=== PATIENT | male | born 1960 | race Caucasian/White ===

== ENCOUNTER → 2017-11-21 12:02 | Outpatient (CLI) | payer BC, SELFPAY ==
[2017-11-21 12:57] LABS: Alanine Aminotransferase 56 IU/L (21-72); Albumin 4.7 g/dL (3.5-5.0); Albumin Globulin Ratio 1.4 (1.0-2.8); Alkaline Phosphatase 119 U/L (38-126); Aspartate Aminotransferase 60 IU/L (17-59); BUN Creatinine Ratio 18.6 (6-22); Bilirubin Total 0.7 mg/dL (0.2-1.3); Blood Urea Nitrogen 13 mg/dL (9-20); Calcium 10.2 mg/dL (8.4-10.2); Carbon Dioxide 24 mmol/L (22-32); Chloride 102 mmol/L (98-107); Cholesterol 201 mg/dL (140-199); Estimated Glomerular Filt Rate > 60.0 mL/min (>60); Globulin 3.3 g/dL (1.7-4.1); Glucose 133 mg/dL (70-100); HDL Cholesterol 56 mg/dL (40-60); HEMOLYSIS < 15 (0-50); LDL Cholesterol Calculated 97 mg/dL (<100); Potassium 4.5 mmol/L (3.4-5.1); Sodium 139 mmol/L (137-145); Triglycerides 241 mg/dL (35-150)
[2017-11-21 12:58] LABS: Hemoglobin A1C% w Est Avg Glu 8.5 % (4.0-6.0)
[2017-11-21 13:06] LABS: Add Manual Diff / Slide Review NO; Eosinophils Percent Auto 1.5 % (2-4); Hematocrit 41.4 % (41-53); Lymphocytes Percent Auto 25.7 % (25-40); Mean Corpuscular HGB Conc 33.9 % (30-36); Mean Corpuscular Hemoglobin 32.9 PG (26-34); Mean Corpuscular Volume 97.1 fL (80-100); Monocytes Percent Auto 8.6 % (3-14); Neutrophils Absolute Auto 5200 /uL (3000-5900); Neutrophils Percent Auto 63.2 % (50-75); Platelet Count 191 X10^3/uL (150-400); Red Blood Cell Count 4.27 X10^6/uL (4.5-5.9); White Blood Cell Count 8.2 X10^3/uL (4.5-11.0)
[2017-11-21 21:25] LABS: TSH w/ Reflex to FT4 0.96 uIU/mL (0.47-4.68)
== END ==
PROVIDERS: PCP Internal Medicine; Visit Provider Internal Medicine
DX: I25.10 Atherosclerotic heart disease of native coronary artery without angina pectoris (principal); I10 Essential (primary) hypertension; E11.9 Type 2 diabetes mellitus without complications; R80.9 Proteinuria, unspecified
CPT/HCPCS: 36415; 80053; 80061; 83036; 84443; 85025

== ENCOUNTER → 2019-06-16 12:26 | Outpatient (CLI) | payer BC, SELFPAY ==
[2019-06-16 13:48] LABS: Hemoglobin A1C% w Est Avg Glu 8.4 % (4.0-6.0)
[2019-06-16 14:06] LABS: BUN Creatinine Ratio 24.3 (6-22); Blood Urea Nitrogen 17 mg/dL (9-20); Calcium 10.3 mg/dL (8.4-10.2); Carbon Dioxide 26 mmol/L (22-32); Chloride 101 mmol/L (98-107); Estimated Glomerular Filt Rate > 60.0 mL/min (>60); Glucose 158 mg/dL (80-110); HEMOLYSIS 15 (0-50); Potassium 4.2 mmol/L (3.4-5.1); Sodium 141 mmol/L (137-145)
== END ==
PROVIDERS: PCP Internal Medicine; Referring Provider Internal Medicine; Visit Provider Internal Medicine
DX: R80.9 Proteinuria, unspecified (principal); I25.10 Atherosclerotic heart disease of native coronary artery without angina pectoris; I10 Essential (primary) hypertension
CPT/HCPCS: 36415; 80048; 83036

== ENCOUNTER → 2020-07-26 19:32 | Outpatient (ROUT) | payer BC, SELFPAY ==
[2020-07-26 19:51] LABS: Hemoglobin A1C% w Est Avg Glu 9.2 % (4.0-6.0)
[2020-07-26 19:53] LABS: BUN Creatinine Ratio 18.1 (6-22); Blood Urea Nitrogen 15 mg/dL (9-20); Carbon Dioxide 27 mmol/L (22-32); Chloride 104 mmol/L (98-107); Estimated Glomerular Filt Rate > 60.0 mL/min (>60); Glucose 181 mg/dL (80-110); HEMOLYSIS < 15 (0-50); Potassium 4.1 mmol/L (3.4-5.1); Sodium 140 mmol/L (137-145)
== END ==
PROVIDERS: PCP Internal Medicine; Visit Provider Internal Medicine
DX: E11.29 Type 2 diabetes mellitus with other diabetic kidney complication (principal)
CPT/HCPCS: 80048; 83036

== ENCOUNTER → 2020-08-11 11:14 | Outpatient (CLI) | payer BC, SELFPAY ==
[2020-08-11] MEDS: COVID-19 VACC #1, MRNA(MOD) 100 MCG/0.5 ML VIAL IM (11:24)
== END ==
PROVIDERS: PCP Internal Medicine; Visit Provider Internal Medicine
DX: Z23 Encounter for immunization (principal)
CPT/HCPCS: 0011A; 91301

== ENCOUNTER → 2020-09-08 11:20 | Outpatient (CLI) | payer BC, SELFPAY ==
[2020-09-08] MEDS: COVID-19 VACC #2, MRNA(MOD) 100 MCG/0.5 ML VIAL IM (11:27)
== END ==
PROVIDERS: PCP Internal Medicine; Visit Provider Internal Medicine
DX: Z23 Encounter for immunization (principal)
CPT/HCPCS: 0012A; 91301

== ENCOUNTER 2022-04-04 12:56 | Emergency (ER) | payer BC, SELFPAY ==
[2022-04-04] VITALS (38 sets, daily range): BP systolic 100–127; BP diastolic 53–70; PULSE 64–94; RESP 16–24; TEMP 36.4–37.2; O2SAT 94–100
--- NOTE | 2022-04-04 13:04 | DI.RAD.S_ITS ---
PROCEDURE: XR CHEST 1V INDICATIONS: Shortness of breath TECHNIQUE: One view of the chest was acquired. COMPARISON: None. FINDINGS: Surgical changes and devices: Sternal wires. Lungs and pleura: There is blunting of the right costophrenic angle. Mediastinum: Mediastinal contours appear normal. Heart size is enlarged. Bones and chest wall: No suspicious bony lesions. Overlying soft tissues appear unremarkable. IMPRESSION: Blunting of the right costophrenic angle suggestive of trace effusion. Dictated by: Tabby Cid M.D. on 04/04/2022 at 13:35 Approved by: Tabby Cid M.D. on 04/04/2022 at 13:35
--- NOTE | 2022-04-04 13:26 | ED.GENADULT ---
HPI - General Adult <Pete Reyes DO - Last Filed: 04/05/22 14:05> General Chief complaint: Shortness of Breath/Dyspnea Stated complaint: severe SOB, dizzyness t-7 Time Seen by Provider: 04/04/22 13:18 Source: patient Mode of arrival: Ambulatory History of Present Illness HPI narrative: Patient is a 61-year-old male. History of diabetes, coronary artery disease. Has had a heart attack and a coronary artery bypass graft approximately 13 years ago. Also has a history of hypertension and hyperlipidemia. Has had increasing worsening of shortness of breath specifically on exertion for the past year but specifically worsening over the past week. Does now got to the point where every time he gets up and moves he has some chest discomfort and also shortness of breath. Some coughing this morning but otherwise no productive cough. No noticeable swelling in his lower extremities. He saw his primary doctor approximately 2 weeks ago for the shortness of breath but he does admit that this was before things got worse a week ago. He states that he had some blood work done. Is provider was more concerned about his elevated A1c. Patient states that he came in this morning because he was not getting the results that he thought he should at his primary doctor's office and also now every time he walks even a short distance he become short of breath. Related Data Home Medications Medication Instructions Recorded Confirmed aspirin 81 mg capsule 81 mg PO DAILY 04/05/22 04/05/22 atorvastatin 80 mg tablet 80 mg PO DAILY 04/05/22 04/05/22 empagliflozin 10 mg tablet 10 mg PO DAILY 04/05/22 04/05/22 losartan 50 mg tablet 50 mg PO DAILY 04/05/22 04/05/22 metformin 1,000 mg tablet 1,000 mg PO BIDAC 04/05/22 04/05/22 metoprolol succinate 50 mg 50 mg PO DAILY 04/05/22 04/05/22 tablet,extended release 24 hr omeprazole 20 mg capsule,delayed 20 mg PO DAILY 04/05/22 04/05/22 release sildenafil 50 mg tablet 50 mg PO DAILY PRN Erectile 04/05/22 04/05/22 Dysfunction Allergies Allergy/AdvReac Type Severity Reaction Status Date / Time No Known Drug Allergies Allergy Verified 04/04/22 13:03 Review of Systems <DO Rozina Donnelly Last Filed: 04/05/22 14:05> Review of Systems ROS Unobtainable: All systems reviewed & are unremarkable except as noted in HPI and below Patient History <Pete Reyes DO - Last Filed: 04/05/22 14:05> Medical History Coronary artery disease Diabetes Hyperlipidemia Hypertension Surgical History Hx of CABG Social History lives independently: Yes Exam <Pete Reyes DO - Last Filed: 04/05/22 14:05> Initial Vital Signs Initial Vital Signs: Vital Signs Temperature 97.5 F L 04/04/22 13:01 Pulse Rate 94 H 04/04/22 13:01 Respiratory Rate 20 04/04/22 13:01 Blood Pressure 119/60 04/04/22 13:01 Pulse Oximetry 100 04/04/22 13:01 Oxygen Delivery Method 04/04/22 13:01 Const General: cooperative and comfortable HENMT Head: normal to inspection and normocephalic Eyes General: Yes appearance normal, both eyes and all related structures Neck Neck: normal visual inspection Chest Other: Surgical scar send her chest consistent with CABG history Resp Effort & Inspection: normal respiratory effort Auscultation: clear to auscultation bilaterally Cardio Rate: regular rate Rhythm: regular rhythm Heart Sounds: murmur GI Inspection: normal to inspection and non-distended Palpation: soft Skin Other: Surgical scar consistent with CABG history Neuro General: patient alert, patient awake, patient oriented x3 and moves all extremities Speech: speech normal Extrem General: edema Psych Appearance: grossly normal <Matti South DO - Last Filed: 04/06/22 01:50> Initial Vital Signs Initial Vital Signs: Vital Signs Temperature 97.5 F L 04/04/22 13:01 Pulse Rate 94 H 04/04/22 13:01 Respiratory Rate 20 04/04/22 13:01 Blood Pressure 119/60 04/04/22 13:01 Pulse Oximetry 100 04/04/22 13:01 Oxygen Delivery Method 04/04/22 13:01 Course <Pete Reyes DO - Last Filed: 04/05/22 14:05> Orders Ordered: Discontinued Medications Atorvastatin Calcium (Atorvastatin 20 Mg Tablet) 50 mg PO BEDTIME DELIA Sodium Chloride (Normal Saline 0.9%) 250 mls @ 21 mls/hr IV CONT [facility] Last Infusion: 04/05/22 13:24 Dose: 0 mls/hr Documented By: Admin: 04/04/22 22:15 Dose: 21 mls/hr Documented By: GILMA Sodium Chloride (Normal Saline 0.9%) 500 mls @ 21 mls/hr IV CONT [facility] Last Infusion: 04/05/22 15:00 Dose: 21 mls/hr Documented By: Admin: 04/05/22 13:27 Dose: 21 mls/hr Documented By: UMA Losartan Potassium (Losartan 50 Mg Tablet) 50 mg PO DAILY [facility] Last Admin: 04/05/22 14:45 Dose: 50 mg Documented By: UMA Metformin HCl (Metformin Hcl 500 Mg Tablet) 1,000 mg PO 0800,1700 [facility] Last Admin: 04/05/22 14:44 Dose: 1,000 mg Documented By: UMA Metoprolol Succinate (Metoprolol Er 50 Mg Tablet) 50 mg PO DAILY [facility] Last Admin: 04/05/22 14:44 Dose: 50 mg Documented By: UMA Pantoprazole Sodium (Pantoprazole 40 Mg Vial) 80 mg IV NOW ONE Stop: 04/04/22 15:31 Last Admin: 04/04/22 15:54 Dose: 80 mg Documented By: GILMA Pantoprazole Sodium (Pantoprazole 40 Mg Vial) 40 mg IV DAILY [facility] Last Admin: 04/05/22 09:19 Dose: 40 mg Documented By: JACQUES Vital Signs Vital signs: Vital Signs - 8 hr 04/05/22 06:30 04/05/22 06:30 04/05/22 07:00 Pulse Rate 62 Respiratory Rate 16 Blood Pressure 124/73 120/70 Pulse Oximetry 95 Oxygen Delivery Method 04/05/22 07:00 04/05/22 07:30 04/05/22 07:30 Pulse Rate 77 63 Respiratory Rate 17 17 Blood Pressure 134/79 Pulse Oximetry 96 97 Oxygen Delivery Method 04/05/22 08:00 04/05/22 08:00 04/05/22 08:30 Pulse Rate 65 Respiratory Rate 19 Blood Pressure 144/75 H 128/74 Pulse Oximetry 96 Oxygen Delivery Method 04/05/22 08:30 04/05/22 09:00 04/05/22 09:00 Pulse Rate 65 61 Respiratory Rate 21 17 Blood Pressure 129/73 Pulse Oximetry 98 97 Oxygen Delivery Method 04/05/22 09:30 04/05/22 09:30 04/05/22 10:00 Pulse Rate 70 Respiratory Rate 20 Blood Pressure 140/79 114/62 Pulse Oximetry 97 Oxygen Delivery Method 04/05/22 10:00 04/05/22 10:30 04/05/22 10:30 Pulse Rate 75 69 Respiratory Rate 19 19 Blood Pressure 130/71 Pulse Oximetry 97 96 Oxygen Delivery Method 04/05/22 11:00 04/05/22 11:00 04/05/22 11:30 Pulse Rate 67 Respiratory Rate 19 Blood Pressure 118/69 130/69 Pulse Oximetry 97 Oxygen Delivery Method Room Air 04/05/22 11:30 04/05/22 12:00 04/05/22 12:00 Pulse Rate 65 62 Respiratory Rate 20 18 Blood Pressure 119/59 L Pulse Oximetry 95 94 Oxygen Delivery Method 04/05/22 12:30 04/05/22 12:30 Pulse Rate 67 Respiratory Rate 19 Blood Pressure 132/66 Pulse Oximetry 97 Oxygen Delivery Method <Matti South, DO - Last Filed: 04/06/22 01:50> Orders Ordered: Discontinued Medications Atorvastatin Calcium (Atorvastatin 20 Mg Tablet) 50 mg PO BEDTIME DELIA Sodium Chloride (Normal Saline 0.9%) 250 mls @ 21 mls/hr IV CONT [facility] Last Infusion: 04/05/22 13:24 Dose: 0 mls/hr Documented By: Admin: 04/04/22 22:15 Dose: 21 mls/hr Documented By: GILMA Sodium Chloride (Normal Saline 0.9%) 500 mls @ 21 mls/hr IV CONT [facility] Last Infusion: 04/05/22 15:00 Dose: 21 mls/hr Documented By: Admin: 04/05/22 13:27 Dose: 21 mls/hr Documented By: UMA Losartan Potassium (Losartan 50 Mg Tablet) 50 mg PO DAILY [facility] Last Admin: 04/05/22 14:45 Dose: 50 mg Documented By: UMA Metformin HCl (Metformin Hcl 500 Mg Tablet) 1,000 mg PO 0800,1700 [facility] Last Admin: 04/05/22 14:44 Dose: 1,000 mg Documented By: UMA Metoprolol Succinate (Metoprolol Er 50 Mg Tablet) 50 mg PO DAILY [facility] Last Admin: 04/05/22 14:44 Dose: 50 mg Documented By: UMA Pantoprazole Sodium (Pantoprazole 40 Mg Vial) 80 mg IV NOW ONE Stop: 04/04/22 15:31 Last Admin: 04/04/22 15:54 Dose: 80 mg Documented By: GILMA Pantoprazole Sodium (Pantoprazole 40 Mg Vial) 40 mg IV DAILY [facility] Last Admin: 04/05/22 09:19 Dose: 40 mg Documented By: JACQUES Vital Signs Vital signs: Vital Signs - 8 hr 04/05/22 06:30 04/05/22 06:30 04/05/22 07:00 Pulse Rate 62 Respiratory Rate 16 Blood Pressure 124/73 120/70 Pulse Oximetry 95 Oxygen Delivery Method 04/05/22 07:00 04/05/22 07:30 04/05/22 07:30 Pulse Rate 77 63 Respiratory Rate 17 17 Blood Pressure 134/79 Pulse Oximetry 96 97 Oxygen Delivery Method 04/05/22 08:00 04/05/22 08:00 04/05/22 08:30 Pulse Rate 65 Respiratory Rate 19 Blood Pressure 144/75 H 128/74 Pulse Oximetry 96 Oxygen Delivery Method 04/05/22 08:30 04/05/22 09:00 04/05/22 09:00 Pulse Rate 65 61 Respiratory Rate 21 17 Blood Pressure 129/73 Pulse Oximetry 98 97 Oxygen Delivery Method 04/05/22 09:30 04/05/22 09:30 04/05/22 10:00 Pulse Rate 70 Respiratory Rate 20 Blood Pressure 140/79 114/62 Pulse Oximetry 97 Oxygen Delivery Method 04/05/22 10:00 04/05/22 10:30 04/05/22 10:30 Pulse Rate 75 69 Respiratory Rate 19 19 Blood Pressure 130/71 Pulse Oximetry 97 96 Oxygen Delivery Method 04/05/22 11:00 04/05/22 11:00 04/05/22 11:30 Pulse Rate 67 Respiratory Rate 19 Blood Pressure 118/69 130/69 Pulse Oximetry 97 Oxygen Delivery Method Room Air 04/05/22 11:30 04/05/22 12:00 04/05/22 12:00 Pulse Rate 65 62 Respiratory Rate 20 18 Blood Pressure 119/59 L Pulse Oximetry 95 94 Oxygen Delivery Method 04/05/22 12:30 04/05/22 12:30 Pulse Rate 67 Respiratory Rate 19 Blood Pressure 132/66 Pulse Oximetry 97 Oxygen Delivery Method Medical Decision Making <Pete Reyes, DO - Last Filed: 04/05/22 14:05> Lab Data Lab results reviewed: Yes I reviewed the patient's lab results. Result diagrams: 04/05/22 08:34 04/05/22 08:34 Labs: Lab Results 04/04/22 04/04/22 04/04/22 Range/Units 13:34 14:16 14:16 WBC 7.8 (4.5-11.0) X10^3/uL RBC 2.70 L (4.5-5.9) X10^6/uL Hgb 5.2 L* (13.5-17.5) g/dL Hct 17.4 L* (41-53) % MCV 64.5 L (80-100) fL MCH 19.3 L (26-34) PG MCHC 29.8 L (30-36) % RDW 19.9 H (11.6-14.8) % Plt Count 217 (150-400) X10^3/uL Neut % (Auto) 78.6 H (50-75) % Lymph % (Auto) 12.4 L (25-40) % Newberry % (Auto) 7.3 (3-14) % Eos % (Auto) 0.7 L (2-4) % Baso % (Auto) 1.0 (0-2) % Neut # (Auto) 6100 (3378-7801) /uL Lymph # (Auto) 1000 L (0570-1272) /uL Newberry # (Auto) 600 (0-900) /uL Eos # (Auto) 100 (0-450) /uL Baso # (Auto) 100 (0-100) /uL RBC Morphology See below Hypochromasia 2+ H Poikilocytosis Anisocytosis Microcytosis 2+ H Ovalocytes Schistocytes PT 13.9 H (10.1-12.7) SECONDS INR 1.2 (0.9-1.3) Sodium (137-145) mmol/L Potassium (3.4-5.1) mmol/L Chloride (98-107) mmol/L Carbon Dioxide (22-32) mmol/L BUN (9-20) mg/dL Creatinine (0.66-1.25) mg/dL Estimated GFR (>60) mL/min BUN/Creatinine Ratio (6-22) Glucose (80-110) mg/dL Lactate (0.7-2.1) mmol/L Calcium (8.4-10.2) mg/dL Total Bilirubin (0.2-1.3) mg/dL AST (17-59) IU/L ALT (<50) IU/L Alkaline Phosphatase (38-126) U/L Total Creatine Kinase (55-170) U/L CK-MB (CK-2) CK-MB (CK-2) Rel Index Troponin I (0.01-0.034) ng/mL NT-Pro-B Natriuret Pep (<125) pg/mL Total Protein (6.3-8.2) g/dL Albumin (3.5-5.0) g/dL Globulin (1.7-4.1) g/dL Albumin/Globulin Ratio (1.0-2.8) SARS-CoV-2 (PCR) Negative (Negative) Blood Type Antibody Screen Crossmatch 04/04/22 04/04/22 04/04/22 Range/Units 14:16 14:16 15:20 WBC (4.5-11.0) X10^3/uL RBC (4.5-5.9) X10^6/uL Hgb (13.5-17.5) g/dL Hct (41-53) % MCV (80-100) fL MCH (26-34) PG MCHC (30-36) % RDW (11.6-14.8) % Plt Count (150-400) X10^3/uL Neut % (Auto) (50-75) % Lymph % (Auto) (25-40) % Newberry % (Auto) (3-14) % Eos % (Auto) (2-4) % Baso % (Auto) (0-2) % Neut # (Auto) (8735-3218) /uL Lymph # (Auto) (9322-2037) /uL Newberry # (Auto) (0-900) /uL Eos # (Auto) (0-450) /uL Baso # (Auto) (0-100) /uL RBC Morphology Hypochromasia Poikilocytosis Anisocytosis Microcytosis Ovalocytes Schistocytes PT (10.1-12.7) SECONDS INR (0.9-1.3) Sodium 140 (137-145) mmol/L Potassium 4.4 (3.4-5.1) mmol/L Chloride 106 (98-107) mmol/L Carbon Dioxide 20 L (22-32) mmol/L BUN 25 H (9-20) mg/dL Creatinine 1.09 (0.66-1.25) mg/dL Estimated GFR > 60 (>60) mL/min BUN/Creatinine Ratio 22.9 H (6-22) Glucose 168 H (80-110) mg/dL Lactate 2.7 H (0.7-2.1) mmol/L Calcium 9.6 (8.4-10.2) mg/dL Total Bilirubin 0.7 (0.2-1.3) mg/dL AST 27 (17-59) IU/L ALT 25 (<50) IU/L Alkaline Phosphatase 67 (38-126) U/L Total Creatine Kinase (55-170) U/L CK-MB (CK-2) CK-MB (CK-2) Rel Index Troponin I 0.144 H* (0.01-0.034) ng/mL NT-Pro-B Natriuret Pep 2130 H (<125) pg/mL Total Protein 7.8 (6.3-8.2) g/dL Albumin 4.4 (3.5-5.0) g/dL Globulin 3.4 (1.7-4.1) g/dL Albumin/Globulin Ratio 1.3 (1.0-2.8) SARS-CoV-2 (PCR) (Negative) Blood Type O Negative Antibody Screen Negative Crossmatch See Detail 04/04/22 04/04/22 04/04/22 Range/Units 16:45 19:13 23:11 WBC (4.5-11.0) X10^3/uL RBC (4.5-5.9) X10^6/uL Hgb 6.0 L* (13.5-17.5) g/dL Hct 19.1 L* (41-53) % MCV (80-100) fL MCH (26-34) PG MCHC (30-36) % RDW (11.6-14.8) % Plt Count (150-400) X10^3/uL Neut % (Auto) (50-75) % Lymph % (Auto) (25-40) % Newberry % (Auto) (3-14) % Eos % (Auto) (2-4) % Baso % (Auto) (0-2) % Neut # (Auto) (4499-5571) /uL Lymph # (Auto) (6935-8038) /uL Newberry # (Auto) (0-900) /uL Eos # (Auto) (0-450) /uL Baso # (Auto) (0-100) /uL RBC Morphology Hypochromasia Poikilocytosis Anisocytosis Microcytosis Ovalocytes Schistocytes PT (10.1-12.7) SECONDS INR (0.9-1.3) Sodium (137-145) mmol/L Potassium (3.4-5.1) mmol/L Chloride (98-107) mmol/L Carbon Dioxide (22-32) mmol/L BUN (9-20) mg/dL Creatinine (0.66-1.25) mg/dL Estimated GFR (>60) mL/min BUN/Creatinine Ratio (6-22) Glucose (80-110) mg/dL Lactate 2.1 (0.7-2.1) mmol/L Calcium (8.4-10.2) mg/dL Total Bilirubin (0.2-1.3) mg/dL AST (17-59) IU/L ALT (<50) IU/L Alkaline Phosphatase (38-126) U/L Total Creatine Kinase 31 L (55-170) U/L CK-MB (CK-2) TNP CK-MB (CK-2) Rel Index TNP Troponin I 0.156 H* (0.01-0.034) ng/mL NT-Pro-B Natriuret Pep (<125) pg/mL Total Protein (6.3-8.2) g/dL Albumin (3.5-5.0) g/dL Globulin (1.7-4.1) g/dL Albumin/Globulin Ratio (1.0-2.8) SARS-CoV-2 (PCR) (Negative) Blood Type Antibody Screen Crossmatch 04/05/22 04/05/22 Range/Units 08:34 08:34 WBC 7.0 (4.5-11.0) X10^3/uL RBC 3.52 L (4.5-5.9) X10^6/uL Hgb 8.1 L (13.5-17.5) g/dL Hct 25.2 L (41-53) % MCV 71.5 L D (80-100) fL MCH 23.0 L (26-34) PG MCHC 32.2 (30-36) % RDW 25.5 H (11.6-14.8) % Plt Count 178 (150-400) X10^3/uL Neut % (Auto) 74.7 (50-75) % Lymph % (Auto) 13.1 L (25-40) % Newberry % (Auto) 9.7 (3-14) % Eos % (Auto) 1.3 L (2-4) % Baso % (Auto) 1.2 (0-2) % Neut # (Auto) 5200 (6428-7917) /uL Lymph # (Auto) 900 L (8077-2784) /uL Newberry # (Auto) 700 (0-900) /uL Eos # (Auto) 100 (0-450) /uL Baso # (Auto) 100 (0-100) /uL RBC Morphology See below Hypochromasia 2+ H Poikilocytosis 2+ H Anisocytosis 2+ H Microcytosis 1+ H Ovalocytes 1+ H Schistocytes 1+ H PT (10.1-12.7) SECONDS INR (0.9-1.3) Sodium 140 (137-145) mmol/L Potassium 4.2 (3.4-5.1) mmol/L Chloride 108 H (98-107) mmol/L Carbon Dioxide 25 (22-32) mmol/L BUN 22 H (9-20) mg/dL Creatinine 1.21 (0.66-1.25) mg/dL Estimated GFR > 60 (>60) mL/min BUN/Creatinine Ratio 18.2 (6-22) Glucose 114 H (80-110) mg/dL Lactate (0.7-2.1) mmol/L Calcium 9.3 (8.4-10.2) mg/dL Total Bilirubin 1.4 H (0.2-1.3) mg/dL AST 24 (17-59) IU/L ALT 23 (<50) IU/L Alkaline Phosphatase 63 (38-126) U/L Total Creatine Kinase 26 L (55-170) U/L CK-MB (CK-2) TNP CK-MB (CK-2) Rel Index TNP Troponin I 0.142 H* (0.01-0.034) ng/mL NT-Pro-B Natriuret Pep (<125) pg/mL Total Protein 7.1 (6.3-8.2) g/dL Albumin 3.9 (3.5-5.0) g/dL Globulin 3.2 (1.7-4.1) g/dL Albumin/Globulin Ratio 1.2 (1.0-2.8) SARS-CoV-2 (PCR) (Negative) Blood Type Antibody Screen Crossmatch Point of Care Testing Stool Occult Blood Positive Glucose POC 255 Point of care testing: Point of Care Testing Stool Occult Blood Positive Glucose POC 255 Imaging Data Chest x-ray: Radiologist's Impression: [address] [address] XRay Report Signed Patient: Octavio Bhatti MR#: [id number] : 1960 Acct:[id number] Age/Sex: 61 / M Date of Service: 04/04/22 Loc: ED Accession Number: [id number] ?? Procedure: XR chest 1V Ordering Provider: Pete Reyes D.O. PROCEDURE:? XR CHEST 1V ? INDICATIONS:? Shortness of breath ? TECHNIQUE:? One view of the chest was acquired.? ? COMPARISON:? None. ? FINDINGS:? ? Surgical changes and devices:? Sternal wires. ? Lungs and pleura:? There is blunting of the right costophrenic angle. ? Mediastinum:? Mediastinal contours appear normal.? Heart size is enlarged. ? Bones and chest wall:? No suspicious bony lesions.? Overlying soft tissues appear unremarkable.? ? IMPRESSION:? Blunting of the right costophrenic angle suggestive of trace effusion.? ? ? Dictated by: Tabby Cid M.D. on 04/04/2022 at 13:35 ? ? Approved by: Tabby Cid M.D. on 04/04/2022 at 13:35? ECG Data Attestation: I personally reviewed and interpreted this ECG as follows: Prior ECG tracings: not available for review Interpretation: Sinus rhythm Ventricular rate of [address] depressions 1 2 aVL V2 V3 V4 No [address] elevations MDM Narrative Medical decision making narrative: Patient is anemic. Has heme-positive stool. Also has an elevated troponin. Has ST depressions. Is only symptomatic upon exertion. Discussed risks and benefits of a blood transfusion. Patient expressed understanding and is agreeable to a blood transfusion. Will transfuse 2 units of packed red blood cells. Discussed the case with Dr. Malik with cardiology who recommended transfusion. He also recommend transfer to facility with Cardiology. Patient is also started on Protonix. Care turned over to Dr. South for continued observation overnight. [1800] (Brannon) Patient received in sign out from [Amy]. I have reviewed the clinical course and performed an independent history and physical exam. Patient on multiple wait lists, blood hanging, patient feeling relatively well 0211 - [facility] called to check in on him, placed on list. 04/05 Dr reyes: Reassume care patient this morning. Reviewed the events last night. He has received a total of 3 units of packed red blood cells. His hemoglobin hematocrit have improved. He remains asymptomatic with no chest pain. He actually states he feels better and less week even with just sitting up in bed and standing at bedside using the urinal. He is tolerating oral intake. He has no abdominal pain. His troponin has improved somewhat but is still elevated. We will continue to hold on any anticoagulation. Repeat EKG today is relatively unchanged from yesterday. Maybe a slight improvement in the ST depressions. We did discuss the case with Dr. Abernathy [facility] at [facility] who accepts the patient in transfer. We received bed assignment. Patient understands the need for transfer. He is in agreement. He is stable for transport. <Matti South, DO - Last Filed: 04/06/22 01:50> Lab Data Labs: Lab Results 04/04/22 04/04/22 04/04/22 Range/Units 13:34 14:16 14:16 WBC 7.8 (4.5-11.0) X10^3/uL RBC 2.70 L (4.5-5.9) X10^6/uL Hgb 5.2 L* (13.5-17.5) g/dL Hct 17.4 L* (41-53) % MCV 64.5 L (80-100) fL MCH 19.3 L (26-34) PG MCHC 29.8 L (30-36) % RDW 19.9 H (11.6-14.8) % Plt Count 217 (150-400) X10^3/uL Neut % (Auto) 78.6 H (50-75) % Lymph % (Auto) 12.4 L (25-40) % Newberry % (Auto) 7.3 (3-14) % Eos % (Auto) 0.7 L (2-4) % Baso % (Auto) 1.0 (0-2) % Neut # (Auto) 6100 (1900-0517) /uL Lymph # (Auto) 1000 L (9920-4435) /uL Newberry # (Auto) 600 (0-900) /uL Eos # (Auto) 100 (0-450) /uL Baso # (Auto) 100 (0-100) /uL RBC Morphology See below Hypochromasia 2+ H Poikilocytosis Anisocytosis Microcytosis 2+ H Ovalocytes Schistocytes PT 13.9 H (10.1-12.7) SECONDS INR 1.2 (0.9-1.3) Sodium (137-145) mmol/L Potassium (3.4-5.1) mmol/L Chloride (98-107) mmol/L Carbon Dioxide (22-32) mmol/L BUN (9-20) mg/dL Creatinine (0.66-1.25) mg/dL Estimated GFR (>60) mL/min BUN/Creatinine Ratio (6-22) Glucose (80-110) mg/dL Lactate (0.7-2.1) mmol/L Calcium (8.4-10.2) mg/dL Total Bilirubin (0.2-1.3) mg/dL AST (17-59) IU/L ALT (<50) IU/L Alkaline Phosphatase (38-126) U/L Total Creatine Kinase (55-170) U/L CK-MB (CK-2) CK-MB (CK-2) Rel Index Troponin I (0.01-0.034) ng/mL NT-Pro-B Natriuret Pep (<125) pg/mL Total Protein (6.3-8.2) g/dL Albumin (3.5-5.0) g/dL Globulin (1.7-4.1) g/dL Albumin/Globulin Ratio (1.0-2.8) SARS-CoV-2 (PCR) Negative (Negative) Blood Type Antibody Screen Crossmatch 04/04/22 04/04/22 04/04/22 Range/Units 14:16 14:16 15:20 WBC (4.5-11.0) X10^3/uL RBC (4.5-5.9) X10^6/uL Hgb (13.5-17.5) g/dL Hct (41-53) % MCV (80-100) fL MCH (26-34) PG MCHC (30-36) % RDW (11.6-14.8) % Plt Count (150-400) X10^3/uL Neut % (Auto) (50-75) % Lymph % (Auto) (25-40) % Newberry % (Auto) (3-14) % Eos % (Auto) (2-4) % Baso % (Auto) (0-2) % Neut # (Auto) (9607-0176) /uL Lymph # (Auto) (0022-4032) /uL Newberry # (Auto) (0-900) /uL Eos # (Auto) (0-450) /uL Baso # (Auto) (0-100) /uL RBC Morphology Hypochromasia Poikilocytosis Anisocytosis Microcytosis Ovalocytes Schistocytes PT (10.1-12.7) SECONDS INR (0.9-1.3) Sodium 140 (137-145) mmol/L Potassium 4.4 (3.4-5.1) mmol/L Chloride 106 (98-107) mmol/L Carbon Dioxide 20 L (22-32) mmol/L BUN 25 H (9-20) mg/dL Creatinine 1.09 (0.66-1.25) mg/dL Estimated GFR > 60 (>60) mL/min BUN/Creatinine Ratio 22.9 H (6-22) Glucose 168 H (80-110) mg/dL Lactate 2.7 H (0.7-2.1) mmol/L Calcium 9.6 (8.4-10.2) mg/dL Total Bilirubin 0.7 (0.2-1.3) mg/dL AST 27 (17-59) IU/L ALT 25 (<50) IU/L Alkaline Phosphatase 67 (38-126) U/L Total Creatine Kinase (55-170) U/L CK-MB (CK-2) CK-MB (CK-2) Rel Index Troponin I 0.144 H* (0.01-0.034) ng/mL NT-Pro-B Natriuret Pep 2130 H (<125) pg/mL Total Protein 7.8 (6.3-8.2) g/dL Albumin 4.4 (3.5-5.0) g/dL Globulin 3.4 (1.7-4.1) g/dL Albumin/Globulin Ratio 1.3 (1.0-2.8) SARS-CoV-2 (PCR) (Negative) Blood Type O Negative Antibody Screen Negative Crossmatch See Detail 04/04/22 04/04/22 04/04/22 Range/Units 16:45 19:13 23:11 WBC (4.5-11.0) X10^3/uL RBC (4.5-5.9) X10^6/uL Hgb 6.0 L* (13.5-17.5) g/dL Hct 19.1 L* (41-53) % MCV (80-100) fL MCH (26-34) PG MCHC (30-36) % RDW (11.6-14.8) % Plt Count (150-400) X10^3/uL Neut % (Auto) (50-75) % Lymph % (Auto) (25-40) % Newberry % (Auto) (3-14) % Eos % (Auto) (2-4) % Baso % (Auto) (0-2) % Neut # (Auto) (1663-5080) /uL Lymph # (Auto) (8310-3211) /uL Newberry # (Auto) (0-900) /uL Eos # (Auto) (0-450) /uL Baso # (Auto) (0-100) /uL RBC Morphology Hypochromasia Poikilocytosis Anisocytosis Microcytosis Ovalocytes Schistocytes PT (10.1-12.7) SECONDS INR (0.9-1.3) Sodium (137-145) mmol/L Potassium (3.4-5.1) mmol/L Chloride (98-107) mmol/L Carbon Dioxide (22-32) mmol/L BUN (9-20) mg/dL Creatinine (0.66-1.25) mg/dL Estimated GFR (>60) mL/min BUN/Creatinine Ratio (6-22) Glucose (80-110) mg/dL Lactate 2.1 (0.7-2.1) mmol/L Calcium (8.4-10.2) mg/dL Total Bilirubin (0.2-1.3) mg/dL AST (17-59) IU/L ALT (<50) IU/L Alkaline Phosphatase (38-126) U/L Total Creatine Kinase 31 L (55-170) U/L CK-MB (CK-2) TNP CK-MB (CK-2) Rel Index TNP Troponin I 0.156 H* (0.01-0.034) ng/mL NT-Pro-B Natriuret Pep (<125) pg/mL Total Protein (6.3-8.2) g/dL Albumin (3.5-5.0) g/dL Globulin (1.7-4.1) g/dL Albumin/Globulin Ratio (1.0-2.8) SARS-CoV-2 (PCR) (Negative) Blood Type Antibody Screen Crossmatch 04/05/22 04/05/22 Range/Units 08:34 08:34 WBC 7.0 (4.5-11.0) X10^3/uL RBC 3.52 L (4.5-5.9) X10^6/uL Hgb 8.1 L (13.5-17.5) g/dL Hct 25.2 L (41-53) % MCV 71.5 L D (80-100) fL MCH 23.0 L (26-34) PG MCHC 32.2 (30-36) % RDW 25.5 H (11.6-14.8) % Plt Count 178 (150-400) X10^3/uL Neut % (Auto) 74.7 (50-75) % Lymph % (Auto) 13.1 L (25-40) % Newberry % (Auto) 9.7 (3-14) % Eos % (Auto) 1.3 L (2-4) % Baso % (Auto) 1.2 (0-2) % Neut # (Auto) 5200 (8121-9919) /uL Lymph # (Auto) 900 L (3618-3291) /uL Newberry # (Auto) 700 (0-900) /uL Eos # (Auto) 100 (0-450) /uL Baso # (Auto) 100 (0-100) /uL RBC Morphology See below Hypochromasia 2+ H Poikilocytosis 2+ H Anisocytosis 2+ H Microcytosis 1+ H Ovalocytes 1+ H Schistocytes 1+ H PT (10.1-12.7) SECONDS INR (0.9-1.3) Sodium 140 (137-145) mmol/L Potassium 4.2 (3.4-5.1) mmol/L Chloride 108 H (98-107) mmol/L Carbon Dioxide 25 (22-32) mmol/L BUN 22 H (9-20) mg/dL Creatinine 1.21 (0.66-1.25) mg/dL Estimated GFR > 60 (>60) mL/min BUN/Creatinine Ratio 18.2 (6-22) Glucose 114 H (80-110) mg/dL Lactate (0.7-2.1) mmol/L Calcium 9.3 (8.4-10.2) mg/dL Total Bilirubin 1.4 H (0.2-1.3) mg/dL AST 24 (17-59) IU/L ALT 23 (<50) IU/L Alkaline Phosphatase 63 (38-126) U/L Total Creatine Kinase 26 L (55-170) U/L CK-MB (CK-2) TNP CK-MB (CK-2) Rel Index TNP Troponin I 0.142 H* (0.01-0.034) ng/mL NT-Pro-B Natriuret Pep (<125) pg/mL Total Protein 7.1 (6.3-8.2) g/dL Albumin 3.9 (3.5-5.0) g/dL Globulin 3.2 (1.7-4.1) g/dL Albumin/Globulin Ratio 1.2 (1.0-2.8) SARS-CoV-2 (PCR) (Negative) Blood Type Antibody Screen Crossmatch Point of Care Testing Stool Occult Blood Positive Glucose POC 255 Point of care testing: Point of Care Testing Stool Occult Blood Positive Glucose POC 255 MDM Narrative Medical decision making narrative: Patient is anemic. Has heme-positive stool. Also has an elevated troponin. Has ST depressions. Is only symptomatic upon exertion. Discussed risks and benefits of a blood transfusion. Patient expressed understanding and is agreeable to a blood transfusion. Will transfuse 2 units of packed red blood cells. Discussed the case with Dr. Malik with cardiology who recommended transfusion. He also recommend transfer to facility with Cardiology. Patient is also started on Protonix. Care turned over to Dr. South for continued observation overnight. [1800] (Brannon) Patient received in sign out from Dr. Aldana]. I have reviewed the clinical course and performed an independent history and physical exam. Patient on multiple wait lists, blood hanging, patient feeling relatively well 0211 - [facility] called to check in on him, placed on list. Critical Care Time <Pete Reyes, DO - Last Filed: 04/05/22 14:05> Critical Care Time Critical Care Time: Yes Total Critical Care Time: 50 Attestation: The high probability of a clinically significant, sudden or life threatening deterioration of the []cardiovascular, hematologic, GI system(s) required my full and direct attention, intervention and personal management. The aggregate critical care time was 50 minutes. This time is in addition to time spent performing reported procedures but includes the following: [x] Data Review and interpretation [x] Patient assessment and monitoring of vital signs [x] Documentation [x] Medication orders and management Discharge Plan Departure Patient Disposition: [facility] Clinical Impression: Anemia, Dyspnea on exertion, Elevated troponin, GI bleed Prescriptions: No Action losartan 50 mg tablet 50 mg PO DAILY Label Comments: TAKE ONE TABLET BY MOUTH ONE TIME DAILY atorvastatin 80 mg tablet 80 mg PO DAILY Label Comments: TAKE ONE TABLET BY MOUTH ONE TIME DAILY sildenafil 50 mg tablet 50 mg PO DAILY PRN (Reason: Erectile Dysfunction) Label Comments: TAKE ONE TABLET BY MOUTH ONE TIME DAILY Rx Instructions: med list states daily, pt states he takes prn for sexual activity metoprolol succinate 50 mg tablet extended release 24 hr 50 mg PO DAILY Label Comments: TAKE ONE TABLET BY MOUTH ONE TIME DAILY metformin 1,000 mg tablet 1,000 mg PO BIDAC Rx Instructions: twice daily w/ meals omeprazole 20 mg Capsule,Delayed Release(Dr/Ec) 20 mg PO DAILY empagliflozin 10 mg Tablet 10 mg PO DAILY aspirin 81 mg Capsule 81 mg PO DAILY Referrals: Nir Mora MD [Primary Care Provider] -
[2022-04-04 14:04] LABS: COVID19 -Nasal RAPID Negative (Negative)
[2022-04-04 14:33] LABS: INR 1.2 (0.9-1.3); Prothrombin Time 13.9 SECONDS (10.1-12.7)
[2022-04-04 14:43] LABS: Add Manual Diff / Slide Review NO; Alanine Aminotransferase 25 IU/L (<50); Albumin 4.4 g/dL (3.5-5.0); Albumin Globulin Ratio 1.3 (1.0-2.8); Alkaline Phosphatase 67 U/L (38-126); Aspartate Aminotransferase 27 IU/L (17-59); BUN Creatinine Ratio 22.9 (6-22); Basophils Absolute Auto 100 /uL (0-100); Bilirubin Total 0.7 mg/dL (0.2-1.3); Blood Urea Nitrogen 25 mg/dL (9-20); Calcium 9.6 mg/dL (8.4-10.2); Carbon Dioxide 20 mmol/L (22-32); Chloride 106 mmol/L (98-107); Eosinophils Absolute Auto 100 /uL (0-450); Eosinophils Percent Auto 0.7 % (2-4); Estimated Glomerular Filt Rate > 60 mL/min (>60); Globulin 3.4 g/dL (1.7-4.1); Glucose 168 mg/dL (80-110); HEMOLYSIS < 15 (0-50); Lymphocytes Absolute Auto 1000 /uL (1100-4500); Lymphocytes Percent Auto 12.4 % (25-40); Mean Corpuscular HGB Conc 29.8 % (30-36); Mean Corpuscular Hemoglobin 19.3 PG (26-34); Mean Corpuscular Volume 64.5 fL (80-100); Monocytes Absolute Auto 600 /uL (0-900); Monocytes Percent Auto 7.3 % (3-14); Neutrophils Absolute Auto 6100 /uL (1500-7000); Neutrophils Percent Auto 78.6 % (50-75); Platelet Count 217 X10^3/uL (150-400); Potassium 4.4 mmol/L (3.4-5.1); Red Cell Distribution Width 19.9 % (11.6-14.8); Sodium 140 mmol/L (137-145); Total Protein 7.8 g/dL (6.3-8.2); White Blood Cell Count 7.8 X10^3/uL (4.5-11.0)
[2022-04-04 14:44] LABS: Lactate (Lactic Acid) 2.7 mmol/L (0.7-2.1)
[2022-04-04 14:47] LABS: Hematocrit 17.4 % (41-53); Hemoglobin 5.2 g/dL (13.5-17.5)
[2022-04-04 14:55] LABS: NT-proBNP (BNP-Adult 18+) 2130 pg/mL (<125)
[2022-04-04 14:57] LABS: Troponin I 0.144 ng/mL (0.01-0.034)
[2022-04-04 15:04] LABS: Hypochromasia 2+; Microcytosis 2+
[2022-04-04] MEDS: PANTOPRAZOLE 40 MG VIAL 80 MG IV (15:54)
[2022-04-04 16:22] LABS: Reflexed Lactate in 2 Hours Y
[2022-04-04 17:08] LABS: Lactate 2HR (Lactic Acid Rflx) 2.1 mmol/L (0.7-2.1)
--- NOTE | 2022-04-04 17:27 | PC.NURSE ---
pt has been put on xfer list and faxed faced sheet @ [facility], [facility]. no beds or waitlist @ [facility] [place]
--- NOTE | 2022-04-04 17:31 | PC.NURSE ---
pt. on waitlist and faxed @ [facility], , [place] and [facility]. left voicemail at [facility]. no waitlist/beds @ [facility]
[2022-04-04 19:35] LABS: Creatine Kinase 31 U/L (55-170)
[2022-04-04 19:53] LABS: Troponin I 0.156 ng/mL (0.01-0.034)
[2022-04-04] MEDS: SODIUM CHLORIDE 0.9% 250 ML 21 ML IV (22:15)
[2022-04-04 23:36] LABS: Hematocrit 19.1 % (41-53)
[2022-04-05] VITALS (38 sets, daily range): BP systolic 108–144; BP diastolic 59–79; PULSE 59–77; RESP 12–25; TEMP 36.8–37.2; O2SAT 89–99
--- NOTE | 2022-04-05 06:33 | PC.NURSE ---
DIRECTOR OF RECRUITING note: reached out to [facility] and Radha is going to try to help find a bed. He is on their list.
--- NOTE | 2022-04-05 08:47 | PC.NURSE ---
Updated Annette in lobby. Patient updated as well on plan.
[2022-04-05 08:50] LABS: Add Manual Diff / Slide Review NO; Basophils Absolute Auto 100 /uL (0-100); Basophils Percent Auto 1.2 % (0-2); Eosinophils Absolute Auto 100 /uL (0-450); Eosinophils Percent Auto 1.3 % (2-4); Hematocrit 25.2 % (41-53); Hemoglobin 8.1 g/dL (13.5-17.5); Lymphocytes Absolute Auto 900 /uL (1100-4500); Lymphocytes Percent Auto 13.1 % (25-40); Mean Corpuscular HGB Conc 32.2 % (30-36); Mean Corpuscular Volume 71.5 fL (80-100); Monocytes Absolute Auto 700 /uL (0-900); Monocytes Percent Auto 9.7 % (3-14); Neutrophils Absolute Auto 5200 /uL (1500-7000); Neutrophils Percent Auto 74.7 % (50-75); Platelet Count 178 X10^3/uL (150-400); Red Blood Cell Count 3.52 X10^6/uL (4.5-5.9); Red Cell Distribution Width 25.5 % (11.6-14.8)
[2022-04-05 08:53] LABS: Alanine Aminotransferase 23 IU/L (<50); Albumin 3.9 g/dL (3.5-5.0); Albumin Globulin Ratio 1.2 (1.0-2.8); Alkaline Phosphatase 63 U/L (38-126); Aspartate Aminotransferase 24 IU/L (17-59); BUN Creatinine Ratio 18.2 (6-22); Bilirubin Total 1.4 mg/dL (0.2-1.3); Blood Urea Nitrogen 22 mg/dL (9-20); Calcium 9.3 mg/dL (8.4-10.2); Carbon Dioxide 25 mmol/L (22-32); Chloride 108 mmol/L (98-107); Creatine Kinase 26 U/L (55-170); Estimated Glomerular Filt Rate > 60 mL/min (>60); Globulin 3.2 g/dL (1.7-4.1); Glucose 114 mg/dL (80-110); HEMOLYSIS < 15 (0-50); Potassium 4.2 mmol/L (3.4-5.1); Sodium 140 mmol/L (137-145); Total Protein 7.1 g/dL (6.3-8.2)
[2022-04-05 09:09] LABS: Troponin I 0.142 ng/mL (0.01-0.034)
[2022-04-05] MEDS: PANTOPRAZOLE 40 MG VIAL IV (09:19)
[2022-04-05 09:36] LABS: Anisocytosis 2+; Hypochromasia 2+; Microcytosis 1+; Ovalocytes 1+; Poikilocytosis 2+
[2022-04-05 09:38] LABS: Schistocytes 1+
--- NOTE | 2022-04-05 12:17 | PC.NURSE ---
Reconciled medications w/ Patient and with med list from PCP. Reviewed w/ Dr. Reyes
[2022-04-05] MEDS: SODIUM CHLORIDE 0.9% 500 ML 21 ML IV (13:27)
[2022-04-05] MEDS: METOPROLOL ER 50 MG TABLET PO (14:44)
[2022-04-05] MEDS: METFORMIN HCL 500 MG TABLET 1000 MG PO (14:44)
[2022-04-05] MEDS: LOSARTAN 50 MG TABLET PO (14:45)
== END 2022-04-05 15:00 | disposition short-term general hospital (02) ==
PROVIDERS: Emergency Medicine; Emergency Provider Emergency Medicine; PCP Internal Medicine
DX: K92.2 Gastrointestinal hemorrhage, unspecified (principal); D64.9 Anemia, unspecified; R06.00 Dyspnea, unspecified; R07.9 Chest pain, unspecified; R42 Dizziness and giddiness; I25.2 Old myocardial infarction; R77.8 Other specified abnormalities of plasma proteins; Z79.899 Other long term (current) drug therapy; Z20.822 Contact with and (suspected) exposure to COVID-19
CPT/HCPCS: 36415; 36430; 71045; 80053; 82272; 82550; 82962; 83605; 83880; 84484; 85014; 85018; 85025; 85610; 86850; 86900; 86901; 87635; 93005; 96361; 96374; 96376; 99285; 99291; C9803; P9016; C9113